=== PATIENT | female | born 1960 | race Caucasian/White ===

== ENCOUNTER → 2017-05-27 15:48 | Outpatient (CLI) | payer OTHER, SELFPAY ==
[2017-05-27 16:16] LABS: Troponin I < 0.02 ng/ml (0.00-0.06)
== END ==
PROVIDERS: PCP Internal Medicine; Visit Provider Internal Medicine
DX: R07.9 Chest pain, unspecified (principal); R14.2 Eructation
CPT/HCPCS: 36415; 84484; 93005

== ENCOUNTER → 2017-10-07 10:27 | Outpatient (CLI) | payer OTHER, SELFPAY ==
--- NOTE | 2017-10-07 10:32 | XR_ITS ---
XR hip LT 2-3V w/pelvis HISTORY: ITS.REASON: LT HIP PAIN ORDERING PHYSICIAN: Chan George PATIENT AGE: 56 years COMPARISON: None FINDINGS: Severe osteoarthritic changes are present involving the left hip with loss of the joint space superiorly and with osteosclerosis of the acetabular roof and the left femoral head with some minimal flattening of the femoral head. Cortical thickening involves the left femoral neck and may be due to remodeling from the severe osteoarthritis. An old fracture is also a consideration. No acute fracture or dislocation Prominent osteophytes are present involving the left hip. Moderate osteoarthritic changes involve the right hip. IMPRESSION: 1. Severe osteoarthritis of the left hip with dysplastic changes of the femoral head and neck. 2. Moderate osteoarthritis of the right hip.
== END ==
PROVIDERS: PCP Internal Medicine; Visit Provider Internal Medicine
DX: M25.552 Pain in left hip (principal)
CPT/HCPCS: 73502

== ENCOUNTER → 2018-05-18 09:22 | Outpatient (CLI) | payer OTHER, SELFPAY ==
--- NOTE | 2018-05-18 09:27 | XR_ITS ---
XR chest 2V HISTORY: History of breast cancer, prior right mastectomy ITS.REASON: FHX HEART DISEASE, PRE OP ORDERING PHYSICIAN: Chan George PATIENT AGE: 57 years COMPARISON: None FINDINGS: The cardiomediastinal silhouette and pulmonary vascularity are within normal limits. There are surgical clips in the right axilla. Prior right mastectomy. The lungs are clear without infiltrates, suspicious nodules, or pleural effusions. There is minimal upper thoracic curvature convex right. IMPRESSION: No acute finding. Prior right mastectomy
[2018-05-18 15:38] LABS: Basophils % 0.8 % (0.1-2.0); Eosinophils # 0.3 K/mm3 (0.0-0.4); Eosinophils % 6.2 % (0.1-12.0); Hematocrit 36.5 % (37.0-47.0); Hemoglobin 12.1 g/dL (12.2-16.2); Lymphocytes # 1.9 K/mm3 (0.7-4.5); Lymphocytes % 34.5 % (10-50); Mean Corpuscular HGB Conc 33.1 g/dL (31.8-35.4); Mean Corpuscular Hemoglobin 29.3 pg (27.0-31.2); Mean Corpuscular Volume 88.6 fl (81-99); Mean Platelet Volume 7.5 fl (7.4-10.4); Monocytes # 0.4 K/mm3 (0.1-1.0); Monocytes % 6.5 % (1.7-9.3); Neutrophils # 2.8 K/mm3 (1.8-7.8); Neutrophils % 52.1 % (37.0-80.0); Platelet Count 249 K/mm3 (142-424); Red Blood Count 4.12 M/mm3 (4.20-5.40); Red Cell Distribution Width 13.5 % (11.5-17.5); White Blood Count 5.4 K/mm3 (4.8-10.8)
[2018-05-18 16:51] LABS: Anion Gap 15.3 mEq/L (5-15); Blood Urea Nitrogen 15 mg/dL (7-18); Calcium 9.2 mg/dL (8.5-10.1); Carbon Dioxide 28 mmol/L (21.0-32.0); Chloride 104 mmol/L (98-107); Estimated Glomerular Filt Rate 74 ml/min (>60); GFR (African American) 90 ML/MIN (>60); Glucose 79 mg/dL (74-106); Potassium 4.3 mmoL/L (3.5-5.1); Sodium 143 mmol/L (136-145)
[2018-05-20 10:01] LABS: Vitamin D 25 Hydroxy 16.7 ng/mL (30.0-100.0)
== END ==
PROVIDERS: PCP Internal Medicine; Visit Provider Internal Medicine
DX: Z01.810 Encounter for preprocedural cardiovascular examination (principal); M25.552 Pain in left hip; E55.9 Vitamin D deficiency, unspecified
CPT/HCPCS: 36415; 71046; 80048; 82652; 85025; 93005

== ENCOUNTER → 2018-05-26 12:06 | Outpatient (CLI) | payer OTHER, SELFPAY ==
--- NOTE | 2018-05-26 12:20 | NM_ITS ---
CARDIOLITE SPECT MYOCARDIAL PERFUSION LEXISCAN, REST AND STRESS: [facility] REVIEW QGS EF AND WALL MOTION EVALUATION: QPS - PERFUSION EVALUATION HISTORY: Chest pain, Pre op, Family history DOSE: 10.23 mCi technetium 99m mibi intravenously at rest followed by 32.3 mCi technetium 99m mibi following the intravenous ministration of 0.4 mg of Lexiscan. Resting blood pressure is 180/108. Stress blood pressure 169/93. FINDINGS: Ejection fraction is calculated to be 62%. Stress images reveal decreased activity in the anterior wall while rest images reveal slightly improved activity. Gated images calculated ejection fraction of 62% with normal wall motion IMPRESSION: Reversible ischemia in the anterior wall. Normal ejection fraction normal wall motion. Based on anterior wall involvement
--- NOTE | 2018-05-26 14:15 | HMH.ITSHM ---
Current Home Medications as stated by this patient Marium Musa or customer sales representative. []OMEPRAZOLE VITAMIN D3 FLUTICASONE ADVIL
== END ==
PROVIDERS: PCP Internal Medicine; Visit Provider Internal Medicine
DX: Z01.818 Encounter for other preprocedural examination (principal); R07.9 Chest pain, unspecified
CPT/HCPCS: 78452; 93017; A9502; J2785

== ENCOUNTER → 2018-08-09 09:09 | Outpatient (CLI) | payer OTHER, SELFPAY ==
--- NOTE | 2018-08-09 09:20 | XR_ITS ---
XR hip LT 2-3V w/pelvis HISTORY: Follow-up hip replacement ITS.REASON: S/P LTHA ORDERING PHYSICIAN: Referral Provider, PATIENT AGE: 57 years COMPARISON: 10/07/2017 FINDINGS: Status post total left hip replacement on the left with good alignment and no evidence of orthopedic complication. Osteoarthritic changes involve the right hip. IMPRESSION: Good alignment status post total hip replacement
== END ==
PROVIDERS: PCP Internal Medicine; Visit Provider Orthopaedic Surgery
DX: Z47.1 Aftercare following joint replacement surgery (principal)
CPT/HCPCS: 73502

== ENCOUNTER → 2018-08-17 08:49 | Outpatient (POV) | payer OTHER, SELFPAY | PROVIDERS: PCP Dermatology; Referring Provider Dermatology; Visit Provider Dermatology | DX: Z00.00 Encounter for general adult medical examination without abnormal findings (principal) ==

== ENCOUNTER 2018-09-13 08:00 | Outpatient (RCR) | payer OTHER, SELFPAY | END 2018-09-13 08:05 | disposition home or self-care (01) | LOC: PT 08:00 | PROVIDERS: Visit Provider Orthopaedic Surgery | DX: Z47.1 Aftercare following joint replacement surgery (principal) | CPT/HCPCS: 97010; 97014; 97110; 97163; G0283 ==

== ENCOUNTER → 2019-10-18 08:09 | Outpatient (POV) | payer OTHER, SELFPAY | PROVIDERS: Visit Provider Dermatology | DX: Z00.00 Encounter for general adult medical examination without abnormal findings (principal) ==

== ENCOUNTER 2020-08-03 07:45 | Emergency (ER) | payer BC, SELFPAY ==
[2020-08-03] VITALS (7 sets, daily range): BP systolic 161–208; BP diastolic 87–105; PULSE 67–95; RESP 16–20; TEMP 36.5; O2SAT 96–99; BMI 27.8
--- NOTE | 2020-08-03 07:51 | HMH.EDGENADL ---
ED Disposition Clinical Impression: HTN (hypertension) Qualifiers: Hypertension type: essential hypertension Qualified Code(s): I10 - Essential (primary) hypertension Disposition: Home, Self-Care Condition on Discharge: Good Referrals: Chan George [Primary Care Provider] - 08/06/20 (Call for appointment time slot) Time of Disposition: 08:21 - Critical Care Critical Care Time: No Attestation: On , the high probability of a clinically significant, sudden or life threatening deterioration of the following system(s) required my full and direct attention, intervention and personal management. The time I documented below is in addition to time spent performing reported procedures but includes the following listed in this critical care notation. Medical Decision Making - Medical Records Medical records reviewed: Yes: I reviewed the patient's medical records. - Nikolay Inquiry Pt receiving controlled substance: No Vital Signs: 08/03/20 07:46 08/03/20 08:00 08/03/20 08:36 Temperature 97.7 F Temperature Source Oral Pulse Rate 86 Pulse Rate [Right] 95 H Respiratory Rate 18 20 Blood Pressure 184/104 H 183/99 H Blood Pressure [Right Arm] 208/105 H Blood Pressure Mean 130 Blood Pressure Mean [Right Arm] 139 02 Sat by Pulse Oximetry 99 98 Oxygen Delivery Method Room Air - Lab Data Lab results reviewed: Yes: I reviewed the patient's lab results. Lab Results 08/03/20 08:42: WBC 4.2 L, RBC 4.63, Hgb 13.6, Hct 40.7, MCV 87.9, MCH 29.3, MCHC 33.4, RDW 14.1, Plt Count 267, MPV 7.8, Neut % (Auto) 48.9, Lymph % (Auto) 33.2, [place] % (Auto) 7.9, Eos % (Auto) 8.8, Baso % (Auto) 1.3, Neut # (Auto) 2.0, Lymph # (Auto) 1.4, [place] # (Auto) 0.3, Eos # (Auto) 0.4, Baso # (Auto) 0.1 08/03/20 08:42: Sodium 142, Potassium 3.2 L, Chloride 100, Carbon Dioxide 30, Anion Gap 15.2 H, BUN 9, Creatinine 0.80, Estimated Creat Clear 90, Estimated GFR 74, Est GFR ( Amer) 89, Glucose 105 H, Calcium 9.3 Result diagrams: 08/03/20 08:42 08/03/20 08:42 Orders (Tests/Meds): ED MEDICATIONS Discontinued Medications Generic Name Dose Route Start Last Admin Trade Name Taj PRN Reason Stop Dose Admin Labetalol HCl 20 mg 08/03/20 08:22 08/03/20 08:36 Labetalol 5mg/Ml 20ml Mdv IV 08/03/20 08:23 20 mg ONCE ONE Administration - ECG Data Tracing #1 I reviewed this ECG and interpreted as documented below: Normal sinus rhythm, 86 bpm, no ST elevation or depression, no ectopy, normal intervals. ECG initial impression date: 08/03/20 ECG initial impression time: 08:10 Medical Decision Narrative: 59yo F evaluated for hypertension. Patient is in no acute distress on initial evaluation. Her physical exam is benign. EKG is benign as above. Will order basic laboratory studies along with chest x-ray. Troponin is not ordered as the patient is not experiencing chest pain, nor has she experienced chest pain. We will start the patient on antihypertensive medication at this time and she can follow-up with her PCP early next week. Patient's work-up is benign. Her blood pressure is improved. She is discharged home with a prescription for lisinopril. She is encouraged to follow-up with her PCP on Thursday or Thursday. General Adult HPI - General Stated complaint: high blood pressure Time Seen by Provider: 08/03/20 07:51 Mode of Arrival: Ambulatory - History of Present Illness HPI narrative: 59yo F without significant past medical history reports emergency department secondary to elevated blood pressure. Patient reports she has not felt well for several weeks and thought initially she had sinus issues. She was taking [id number] sinus medication with no improvement. She discontinued that on Thursday. She denies fever, chest pain, cough, change in appetite or diet. She reports mild nausea without any vomiting. She began checking her blood pressure concerned maybe that was the etiology of her symptoms. She
--- NOTE | 2020-08-03 08:10 | ECG_ITS ---
APPROVED REPORT Exam: Resting ECG HR:86 bpm ECG Measurements Heart Rate 86 AXES UT 112 P 27 QRSd 90 QRS -9 QT 398 T 34 QTc 476 Conclusion Normal sinus rhythm Normal ECG Electronically signed by : Dimas Lynn, 08/03/2020 15:57:55
--- NOTE | 2020-08-03 08:14 | XR_ITS ---
PROCEDURE: XR CHEST PORTABLE CLINICAL HISTORY: HTN urgency COMPARISON: CR CXR2V XR chest 2V from 05/18/2018 FINDINGS: The cardiomediastinal silhouette and pulmonary vascularity are within normal limits. The lungs are clear without infiltrates, suspicious nodules, or pleural effusions. Surgical clips are present in the right axilla. Minimal upper thoracic scoliosis convex right. IMPRESSION: No acute findings. Dictated by: Tom Ken MD 08/03/2020 08:50 Tom Ken MD in [place] 08/03/2020 08:50
[2020-08-03 09:04] LABS: Basophils # 0.1 K/mm3 (0-0.2); Basophils % 1.3 % (0.1-2.0); Eosinophils # 0.4 K/mm3 (0.0-0.4); Eosinophils % 8.8 % (0.1-12.0); Hematocrit 40.7 % (37.0-47.0); Hemoglobin 13.6 g/dL (12.2-16.2); Lymphocytes # 1.4 K/mm3 (0.7-4.5); Lymphocytes % 33.2 % (10-50); Mean Corpuscular HGB Conc 33.4 g/dL (31.8-35.4); Mean Corpuscular Hemoglobin 29.3 pg (27.0-31.2); Mean Corpuscular Volume 87.9 fl (81-99); Mean Platelet Volume 7.8 fl (7.4-10.4); Monocytes # 0.3 K/mm3 (0.1-1.0); Monocytes % 7.9 % (1.7-9.3); Neutrophils % 48.9 % (37.0-80.0); Platelet Count 267 K/mm3 (142-424); Red Blood Count 4.63 M/mm3 (4.20-5.40); Red Cell Distribution Width 14.1 % (11.5-17.5); White Blood Count 4.2 K/mm3 (4.8-10.8)
[2020-08-03 09:11] LABS: Chloride 100 mmol/L (98-107); Potassium 3.2 mmoL/L (3.5-5.1); Sodium 142 mmol/L (136-145)
[2020-08-03 09:14] LABS: Anion Gap 15.2 mEq/L (5-15); Blood Urea Nitrogen 9 mg/dl (7-17); Calcium 9.3 mg/dl (8.4-10.2); Carbon Dioxide 30 mmol/L (22.0-30.0); Creatinine Clearance Estimated 90 mL/min (50-200); Estimated Glomerular Filt Rate 74 ml/min (>60); GFR (African American) 89 ML/MIN (>60); Glucose 105 mg/dl (74-100)
== END 2020-08-03 09:45 | disposition home or self-care (01) ==
PROVIDERS: Emergency Provider Family Medicine; PCP Internal Medicine
DX: R03.0 Elevated blood-pressure reading, without diagnosis of hypertension (principal)
CPT/HCPCS: 71045; 80048; 85025; 93005; 96374; 99282

== ENCOUNTER → 2021-01-01 10:58 | Outpatient (POV) | payer BC, SELFPAY | PROVIDERS: Visit Provider Dermatology | DX: Z00.00 Encounter for general adult medical examination without abnormal findings (principal) ==

== ENCOUNTER → 2021-01-14 15:58 | Outpatient (CLI) | payer BC, SELFPAY ==
[2021-01-14 16:46] LABS: Coronavirus 19, PCR Not Detected (NotDetected); Influenza A, PCR Not Detected (NotDetected); Influenza B, PCR Not Detected (NotDetected)
== END ==
PROVIDERS: PCP Internal Medicine; Visit Provider Internal Medicine
DX: Z20.822 Contact with and (suspected) exposure to COVID-19 (principal)
CPT/HCPCS: C9803; U0003; U0005

== ENCOUNTER → 2022-02-26 10:19 | Outpatient (CLI) | payer BC, SELFPAY ==
--- NOTE | 2022-02-26 10:27 | CT_ITS ---
FINAL REPORT TECHNIQUE: Thin section axial images were obtained from skull base to vertex without contrast. Coronal reconstruction images were obtained from the axial data. Exam was performed using dose reduction technique. CLINICAL HISTORY: HEADACHE, DIZZY FINDINGS: There is no mass effect or midline shift. There is no hydrocephalus. There is no intracranial hemorrhage. The posterior fossa is without acute abnormality. The basilar cisterns are preserved. There is mucous retention cyst or polyp in the right maxillary sinus with mild bilateral mucoperiosteal thickening. No air-fluid level is identified. No acute osseous abnormality is identified. IMPRESSION: No acute intracranial abnormality. Sinus disease as detailed above. Reviewed, Interpreted and Dictated by Erinn Nur MD Transcribed by Maddie Barry Authenticated and [facility]
[2022-02-26 12:35] LABS: Basophils # 0.1 K/mm3 (0-0.2); Basophils % 1.1 % (0.1-2.0); Eosinophils # 0.2 K/mm3 (0.0-0.4); Eosinophils % 2.8 % (0.1-12.0); Hematocrit 41.6 % (37.0-47.0); Lymphocytes # 1.6 K/mm3 (0.7-4.5); Lymphocytes % 27.1 % (10-50); Mean Corpuscular HGB Conc 31.2 g/dL (31.8-35.4); Mean Corpuscular Volume 92.9 fl (81-99); Mean Platelet Volume 8.5 fl (7.4-10.4); Monocytes # 0.4 K/mm3 (0.1-1.0); Monocytes % 6.4 % (1.7-9.3); Neutrophils # 3.6 K/mm3 (1.8-7.8); Neutrophils % 62.5 % (37.0-80.0); Platelet Count 335 K/mm3 (142-424); Red Blood Count 4.48 M/mm3 (4.20-5.40); Red Cell Distribution Width 14.1 % (11.5-17.5); White Blood Count 5.8 K/mm3 (4.8-10.8)
[2022-02-26 13:18] LABS: Chloride 103 mmol/L (98-107)
[2022-02-26 13:19] LABS: Potassium 4.8 mmoL/L (3.5-5.1); Sodium 142 mmol/L (136-145)
[2022-02-26 13:22] LABS: Alanine Aminotransferase 15 U/L (12-78); Albumin Level 4.8 g/dl (3.5-5.0); Albumin/Globulin Ratio 1.6 (1.1-1.8); Alkaline Phosphatase 105 U/L (38-126); Anion Gap 13.8 mEq/L (5-15); Aspartate Amino Transferase 23 U/L (14-36); Bilirubin,Total 0.4 mg/dl (0.2-1.3); Blood Urea Nitrogen 15 mg/dl (7-17); Calcium 9.4 mg/dl (8.4-10.2); Carbon Dioxide 30 mmol/L (22.0-30.0); Cholesterol 156 mg/dl (140-200); Estimated Glomerular Filt Rate 73 ml/min (>60); GFR (African American) 89 ML/MIN (>60); Glucose 107 mg/dl (74-100); Total Protein,Serum 7.8 g/dl (6.3-8.2); Triglycerides 105 mg/dl (30-150); VLDL Cholesterol 21 mg/dL (0-40)
[2022-02-26 13:37] LABS: Direct LDL Cholesterol 64.24 mg/dL (100-129)
[2022-02-26 13:57] LABS: Thyroid Stimulating Hormone 1.87 uIU/mL (0.465-4.68)
[2022-02-26 14:50] LABS: Chol/HDL Ratio 2.7 (1-3.5); HDL Cholesterol 57 mg/dl (40-60)
== END ==
PROVIDERS: PCP Internal Medicine; Visit Provider Internal Medicine
DX: R51.9 Headache, unspecified (principal); R42 Dizziness and giddiness; I10 Essential (primary) hypertension
CPT/HCPCS: 70450; 80053; 80061; 84443; 85025

== ENCOUNTER 2023-05-05 11:39 | Outpatient (POV) | payer BC, SELFPAY | END 2023-05-05 23:59 | disposition home or self-care (01) | LOC: SC 11:39 | PROVIDERS: PCP Internal Medicine; Visit Provider Dermatology | DX: Z00.00 Encounter for general adult medical examination without abnormal findings (principal) ==

== ENCOUNTER 2023-05-26 11:51 | Outpatient (CLI) | payer BC, SELFPAY ==
--- NOTE | 2023-05-26 11:59 | XR_ITS ---
FINAL REPORT CLINICAL HISTORY: HIP PAIN; HISTORY OF HIP REPLACEMENT COMPARISON: None FINDINGS: AP and frog leg views of the right hip were obtained. There is no prior exam for comparison. There is no acute fracture or dislocation. There are is advanced degenerative narrowing of the right hip joint with subchondral sclerosis and osteophyte formation consistent with moderate advanced osteoarthritis.. Soft tissues are within normal limits. A left hip arthroplasty has been performed. IMPRESSION: Moderately advanced osteoarthritis of the right hip as described. Reviewed, Interpreted and Dictated by Obdulio Flores MD Transcribed by Siobhan Mayo Authenticated and [facility]
== END 2023-05-26 23:59 | disposition home or self-care (01) ==
LOC: RAD 11:52
PROVIDERS: PCP Internal Medicine; Visit Provider Internal Medicine
DX: M25.551 Pain in right hip (principal)
CPT/HCPCS: 73502

== ENCOUNTER 2023-08-20 09:53 | Outpatient (CLI) | payer BC, SELFPAY ==
[2023-08-20 15:07] LABS: Basophils # 0.1 K/mm3 (0-0.2); Basophils % 1.5 % (0.1-2.0); Eosinophils # 0.3 K/mm3 (0.0-0.4); Eosinophils % 8.4 % (0.1-12.0); Hematocrit 39.3 % (37.0-47.0); Hemoglobin 12.7 g/dL (12.2-16.2); Lymphocytes # 1.6 K/mm3 (0.7-4.5); Lymphocytes % 38.7 % (10-50); Mean Corpuscular HGB Conc 32.3 g/dL (31.8-35.4); Mean Corpuscular Hemoglobin 30.3 pg (27.0-31.2); Mean Corpuscular Volume 93.7 fl (81-99); Mean Platelet Volume 9.5 fl (7.4-10.4); Monocytes # 0.3 K/mm3 (0.1-1.0); Monocytes % 7.7 % (1.7-9.3); Neutrophils # 1.8 K/mm3 (1.8-7.8); Neutrophils % 43.7 % (37.0-80.0); Platelet Count 279 K/mm3 (142-424); Red Blood Count 4.19 M/mm3 (4.20-5.40); Red Cell Distribution Width 14.3 % (11.5-17.5)
[2023-08-20 15:33] LABS: Alanine Aminotransferase 13 U/L (12-78); Albumin Level 4.7 g/dl (3.5-5.0); Albumin/Globulin Ratio 1.6 (1.1-1.8); Alkaline Phosphatase 86 U/L (38-126); Aspartate Amino Transferase 22 U/L (14-36); Bilirubin,Total 0.9 mg/dl (0.2-1.3); Blood Urea Nitrogen 13 mg/dl (7-17); Calcium 9.5 mg/dl (8.4-10.2); Carbon Dioxide 31 mmol/L (22.0-30.0); Chloride 105 mmol/L (98-107); Chol/HDL Ratio 2.7 (1-3.5); Cholesterol 154 mg/dl (140-200); Estimated Glomerular Filt Rate 85 ml/min (>60); GFR (African American) 103 ML/MIN (>60); Globulin 2.9 g/dL (1.3-3.2); Glucose 80 mg/dl (74-100); HDL Cholesterol 57 mg/dl (40-60); Sodium 142 mmol/L (136-145); Total Protein,Serum 7.6 g/dl (6.3-8.2); Triglycerides 84 mg/dl (30-150); VLDL Cholesterol 17 mg/dL (0-40)
[2023-08-20 15:38] LABS: Hemoglobin A1C 5.4 % (4.0-6.0)
== END 2023-08-20 23:59 | disposition home or self-care (01) ==
LOC: LAB.DROPOF 09:54
PROVIDERS: PCP Internal Medicine; Visit Provider Internal Medicine
DX: Z01.818 Encounter for other preprocedural examination (principal); I10 Essential (primary) hypertension; E78.5 Hyperlipidemia, unspecified
CPT/HCPCS: 80053; 80061; 83036; 85025; 87081

== ENCOUNTER 2023-08-24 10:25 | Outpatient (CLI) | payer BC, SELFPAY ==
--- NOTE | 2023-08-24 10:25 | ECG_ITS ---
APPROVED REPORT Exam: Resting ECG HR:76 bpm ECG Measurements Heart Rate 76 AXES SD 155 P 30 QRSd 92 QRS 3 QT 401 T 15 QTc 431 Conclusion SINUS RHYTHM NORMAL ECG UNCONFIRMED REPORT Electronically signed by : Dimas Lynn MD 08/26/2023 07:12:28
[2023-08-24 16:56] LABS: Microscopic, Urine URINE MICROSCOPIC (MICROSCOPIC)
[2023-08-24 20:34] LABS: Appearance,Urine CLEAR (Clear); Bilirubin,Urine Negative (Negative); Blood, Urine TRACE-I (Negative); Color,Urine YELLOW (Yellow); Glucose,Urine (UA) Negative (Negative); Ketones,Urine Negative (Negative); Leukocyte Esterase,Urine 1+ (Negative); Nitrate,Urine Negative (Negative); PH,Urine 6.5 (5.0-8.5); Protein,Urine Negative (Negative); Specific Gravity, Urine <= 1.005 (1.005-1.030); Urobilinogen,Urine 0.2 EU/dl (0.2)
[2023-08-24 20:49] LABS: Bacteria,Urine 1+ /lpf; RBC,Urine Occasional #/hpf (0-3)
== END 2023-08-24 23:59 | disposition home or self-care (01) ==
LOC: RT 10:25
PROVIDERS: PCP Internal Medicine; Visit Provider Internal Medicine
DX: Z01.818 Encounter for other preprocedural examination (principal); I10 Essential (primary) hypertension
CPT/HCPCS: 81001; 87086; 93005

== ENCOUNTER 2023-09-02 09:54 | Outpatient (CLI) | payer BC, SELFPAY ==
[2023-09-02 14:12] LABS: Microscopic, Urine URINE MICROSCOPIC (MICROSCOPIC)
[2023-09-02 14:24] LABS: Appearance,Urine CLEAR (Clear); Bilirubin,Urine Negative (Negative); Blood, Urine TRACE-I (Negative); Color,Urine YELLOW (Yellow); Glucose,Urine (UA) Negative (Negative); Ketones,Urine Negative (Negative); Leukocyte Esterase,Urine 2+ (Negative); Nitrate,Urine Negative (Negative); Protein,Urine Negative (Negative); Specific Gravity, Urine 1.015 (1.005-1.030); Urobilinogen,Urine 0.2 EU/dl (0.2)
[2023-09-02 14:48] LABS: Bacteria,Urine Trace /lpf
== END 2023-09-02 23:59 | disposition home or self-care (01) ==
LOC: LAB.DROPOF 09-04 09:54
PROVIDERS: PCP Internal Medicine; Visit Provider Internal Medicine
DX: Z01.818 Encounter for other preprocedural examination (principal); M16.9 Osteoarthritis of hip, unspecified
CPT/HCPCS: 81001; 87086

== ENCOUNTER 2023-09-19 10:06 | Emergency (ER) | payer BC, SELFPAY ==
[2023-09-19 10:15] VITALS: BP 139/79; PULSE 86; RESP 19; TEMP 37.4; O2SAT 97; BMI 28.5
[2023-09-19 10:30] LABS: UTC Strep Screen (Rapid) Negative (Negative)
--- NOTE | 2023-09-19 10:45 | EXP.UTC ---
Discharge Plan Disposition Patient Disposition: Home, Self-Care Condition: Good Prescriptions Prescriptions: New amoxicillin 500 mg tablet 500 mg PO BID 10 Days Qty: 20 0RF No Action nifedipine 30 mg tablet extended release 30 mg PO DAILY Patient Comments: TAKE 1 TABLET BY MOUTH ONCE DAILY FOR BLOOD PRESSURE FOR 90 DAYS omeprazole 20 mg capsule,delayed release(DR/EC) 20 mg PO BID Referrals Follow up/Referrals: Chan George MD [Primary Care Provider] - See instructions Activity Restrictions/Add. Instructions Additional Instructions/Restrictions: Start antibiotics today be sure to take it as ordered with the full length of time although you should start feeling better in 24-48 hours. Change toothbrush and toothpaste 24-48 hours after starting antibiotics Tylenol or Motrin as needed for fever or pain Encourage fluids, water, Gatorade, Powerade, try cold fluids, popsicles, ice cream will make it feel better You are contagious for 24 hours. Avoid kissing anyone, no eating or drinking after anyone. You are contagious. Follow-up the ER for new or worsening symptoms or no noticeable improvement over the next 24-48 hours. Follow-up with PCP this week. Clinical Impressions Clinical Impression: Strep sore throat, Otitis media Instructions Patient Instructions: DI for Strep Throat, Middle Ear Infection Print Language Print Language: Azeri Discharge ED Provider: Beverly ([facility])Shelly [facility] [place] HPI General Stated complaint: swelling in throat, ear pain Mode of Arrival: Ambulatory Source of Information: Patient Limitations: No Limitations Time Seen by Provider: 09/19/23 10:45 Description of Symptoms (Recalled from Triage Doc. by RN): PATIENT C/O SORE THROAT AND RIGHT EAR PAIN SINCE YESTERDAY HEENT Symptoms (Recalled from RN notes): Yes Resp Symptoms (Recalled from RN notes): No Skin Symptoms (Recalled from RN notes): No MS Symptoms (Recalled from RN notes): No Functional Status (Recalled from RN notes): WNL History of Present Illness Provider Complaint: 62 yr old female presents for sore throat and rt ear pain Related Data Home Medications ?Medication ?Instructions ?Recorded ?Confirmed nifedipine 30 mg tablet,extended 30 mg PO DAILY 08/20/23 09/19/23 release omeprazole 20 mg capsule,delayed 20 mg PO BID 08/20/23 09/19/23 release Previous Rx's ?Medication ?Instructions ?Recorded amoxicillin 500 mg tablet 500 mg PO BID 10 days #20 tabs 09/19/23 Allergies Allergy/AdvReac Type Severity Reaction Status Date / Time bisoprolol Allergy Verified 09/19/23 10:24 hydrocodone Allergy Verified 08/20/23 08:44 lisinopril Allergy Diarrhea Verified 08/20/23 08:42 Worker's Comp Is this a Worker's Comp case?: No [facility] PFS Disclaimer: The information contained in this section may have been updated after the patient was seen, as this information can be updated by other users. Medical History , [employer]) History of gastroesophageal reflux (GERD) Breast cancer Hypertension Surgical History , [employer]) History of mastectomy History of hip surgery History of cholecystectomy History of hysterectomy Social History , [employer]) Smoking Status: Never smoker alcohol intake: never current occupational status: employed Travel in the last 8 weeks: Inside the [place] ROS Obtained: Yes All systems reviewed & no additional complaints except as documented Constitutional Constitutional: Reports system reviewed and no additional complaints, except as documented Eyes Eyes: Reports system reviewed and no additional complaints, except as documented ENT Ears, Nose, Mouth, and Throat: Reports system reviewed and no additional complaints, except as documented, Reports as per HPI, Reports otalgia and Reports sore throat Cardiovascular Cardiovascular: Reports system reviewed and no additional complaints, except as documented Respiratory Respiratory: Reports system reviewed and no additional complaints, except as documented Gastrointestinal Gastrointestingal: Reports system reviewed and no additional complaints, except as documented Musculoskeletal Musculoskeletal: Reports system reviewed and no additional complaints, except as documented Integumentary/Breasts Skin/Breast: Reports system reviewed and no additional complaints, except as documented Neurologic Neurologic: Reports system reviewed and no additional complaints, except as documented Endocrine Endocrine: Reports system reviewed and no additional complaints, except as documented Hematologic/Lymphatic Henatologic/Lymphatic: Reports system reviewed and no additional complaints, except as documented Allergic/Immunologic Allergic/Immunologic: Reports system reviewed and no additional complaints, except as documented Physical Exam General General appearance: alert and in no apparent distress Head Head exam: atraumatic Eye Eye exam: Present normal appearance ENT ENT exam: Present mucous membranes moist Expanded ENT Exam TM/Canal exam: Right TM: erythema, bulging and loss of landmarks Throat exam: Present tonsillar erythema, tonsillomegaly and tonsillar exudate Neck Neck exam: Present normal inspection Respiratory Respiratory exam: Present normal lung sounds bilaterally Cardiovascular Cardiovascular exam: Present regular rate and normal rhythm Neurological Exam Neurological exam: Present alert and oriented X3 Skin Skin exam: Present warm and intact Medical Decision Making Medical Records Medical records reviewed: Yes I reviewed the patient's medical records. Nikolay Inquiry Pt receiving controlled substance: No Nikolay was queried for this patient: No Vital Signs: 09/19/23 10:15 Temperature 99.4 F Temperature Source Oral Pulse Rate [Left Brachial] 86 Respiratory Rate 19 Blood Pressure [Left Arm] 139/79 Blood Pressure Mean [Left Arm] 99 Blood Pressure Source [Left Arm] Automatic Cuff Blood Pressure Position [Left Arm] Sitting 02 Sat by Pulse Oximetry 97 Oxygen Delivery Method Room Air Lab Data Lab results reviewed: Yes I reviewed the patient's lab results. Lab Results 09/19/23 10:16: Strep Scn Rapid Clinic Negative Orders (Tests/Meds): ORDERS Category Date Time Status Strep Screen Confirmation Stat Micro 09/19/23 10:16 Received
[2023-09-19 10:58] VITALS: BP 139/79; PULSE 86; RESP 19; TEMP 37.4; O2SAT 97
== END 2023-09-19 11:00 | disposition home or self-care (01) ==
PROVIDERS: Emergency Provider Nurse Practitioner Family; PCP Internal Medicine
DX: J02.0 Streptococcal pharyngitis (principal); H66.91 Otitis media, unspecified, right ear
CPT/HCPCS: 87880; 99204; 99212; 99214; G0463

== ENCOUNTER 2023-10-06 09:12 | Outpatient (CLI) | payer BC, SELFPAY ==
[2023-10-06 10:00] LABS: Basophils # 0.1 K/mm3 (0-0.2); Basophils % 0.9 % (0.1-2.0); Eosinophils # 0.3 K/mm3 (0.0-0.4); Eosinophils % 4.1 % (0.1-12.0); Hematocrit 38.9 % (37.0-47.0); Hemoglobin 12.4 g/dL (12.2-16.2); Lymphocytes # 2.4 K/mm3 (0.7-4.5); Lymphocytes % 34.9 % (10-50); Mean Corpuscular Hemoglobin 29.9 pg (27.0-31.2); Mean Corpuscular Volume 93.4 fl (81-99); Mean Platelet Volume 8.4 fl (7.4-10.4); Monocytes # 0.4 K/mm3 (0.1-1.0); Monocytes % 6.4 % (1.7-9.3); Neutrophils # 3.6 K/mm3 (1.8-7.8); Neutrophils % 53.6 % (37.0-80.0); Platelet Count 432 K/mm3 (142-424); Red Blood Count 4.17 M/mm3 (4.20-5.40); Red Cell Distribution Width 14.4 % (11.5-17.5); White Blood Count 6.7 K/mm3 (4.8-10.8)
[2023-10-06 10:36] LABS: Anion Gap 10.3 mEq/L (5-15); Blood Urea Nitrogen 15 mg/dl (7-17); Calcium 9.1 mg/dl (8.4-10.2); Carbon Dioxide 28 mmol/L (22.0-30.0); Chloride 106 mmol/L (98-107); Estimated Glomerular Filt Rate 85 ml/min (>60); GFR (African American) 103 ML/MIN (>60); Glucose 106 mg/dl (74-100); Potassium 4.3 mmoL/L (3.5-5.1); Sodium 140 mmol/L (136-145)
== END 2023-10-06 23:59 | disposition home or self-care (01) ==
PROVIDERS: PCP Internal Medicine; Visit Provider Internal Medicine
DX: Z01.818 Encounter for other preprocedural examination (principal)
CPT/HCPCS: 36415; 80048; 85025; 87081

== ENCOUNTER 2023-12-08 10:28 | Outpatient (CLI) | payer BC, SELFPAY ==
--- NOTE | 2023-12-08 10:34 | XR_ITS ---
PROCEDURE INFORMATION: Exam: XR Right Hip Exam date and time: 12/08/2023 10:53 AM Age: 63 years old Clinical indication: Injury or trauma; Fall; Other: Follow up for SX; Prior surgery; Surgery date: 1-6 months; Surgery type: 6 weeks - hip replacement; Additional info: HX of total RT hip arthroplasty TECHNIQUE: Imaging protocol: Radiologic exam of the right hip. Views: 2 or 3 views hip with pelvis when performed. COMPARISON: CR XR HIP RT 2-3V W/PELVIS 05/26/2023 12:19 PM FINDINGS: Bones/joints: Bilateral total hip replacements. There is no evidence of acute fracture.There is no evidence of malalignment or dislocation. Soft tissues: Unremarkable. Intraperitoneal space: Surgical clips in the pelvis IMPRESSION: There is no evidence of acute fracture.There is no evidence of malalignment or dislocation.
== END 2023-12-08 23:59 | disposition home or self-care (01) ==
LOC: RAD 10:29
PROVIDERS: PCP Internal Medicine; Visit Provider Orthopaedic Surgery
DX: Z96.641 Presence of right artificial hip joint (principal)
CPT/HCPCS: 73502

== ENCOUNTER 2024-05-17 16:06 | Outpatient (CLI) | payer BC, SELFPAY ==
--- OUTSIDE RECORDS SUMMARY | 2024-05-19 21:38 | XMS_ITS ---
Author Organization [facility] , [facility] Address [address] [place] [address] Phone Care Team Providers Care Copier Technician Name Role Phone Rashmi WEI, Chaitanya Steele Unavailable [phone] Problems Includes: Active, inactive, and resolved Problems All Visits Onset Date Resolved Date Provider Condition S tatus Complications Due To Internal Joint Prosthesis Pain Hip 06/25/2023 Checo Preciado MD Active Last Documented On 4 9:01AM ; [facility] Plan of Treatment No Plan of Treatment Recorded Assessments Includes: Assessments for all patient encounters No Assessments Recorded Medical Equipment - Implanted Devices Includes: Current and historical Devices No Medical Equipment Recorded Medications Includes: Current and historical Medications Current Medications (continue as prescribed) NIFEdipine ER 30 MG Oral Tab let Extended Release 24 Hour 05/27/2023 Provider: AALIYAH MARTINEZ MD Diagnosis: Last Documented On 4 9:01AM By Kay[facility] Fluticasone Propionate 50 MCG/ACT Nasal Suspension Provider: Diagnosis: Last Documented On 4 9:01AM By Kayley [facility], [facility] NIFEdipine ER 30 MG Oral Tab let Extended Release 24 Hour 02/23/2023 Provider: AALIYAH MARTINEZ MD Diagnosis: Last Documented On 4 9:01AM By Kayley [facility] Losartan Potassium 50 MG Oral Tablet 12/27/2022 Prov ider: AALIYAH MARTINEZ MD Diagnosis: Last Documented On 4 9:01AM By Kayley [facility] Medications Administered Includes: Administered Medications in patient's chart No Administered Medications Recorded Vital Signs Includes: Vital Signs from 05/20/2023 through 05/19/2024 Vital Name 06/25/2023 09:01A Height (in) 60 Weight (lb) 163 Body Mass Index 31.8 Body Surface Area 1.7 Note: tm Last Documented: On 06/25/2023 9:03AM ; [facility], [facility] Results Includes: Results from 05/20/2023 through 05/19/2024 No Results Recorded For Specified Dates History of Present Illness History of Present Illness not supported for this document type No History of Present Illness Recorded Social History Description Last Updated Caffeine use 06/25/2023 Last Documented On 4 8:09AM ; [facility], [facility] No recent change in diet 06/25/2023 Last Documented On 4 8:09AM ; [facility], [facility] Not a current smoker. 06/25/2023 Last Documented On 4 8:09AM ; [facility], [facility] Not exercising regularly 06/25/2023 Last Documented On 4 8:09AM ; [facility], [facility] Not using alcohol 06/25/2023 Last Documented On 4 8:09AM ; [facility], [facility] Not using drugs 06/25/2023 Last Documented On 4 8:09AM ; [facility], [facility] Never drank alcohol 06/25/2023 Last Documented On 4 8:09AM ; [facility], [facility] Never smoked 06/25/2023 Last Documented On 4 8:09AM ; [facility], [facility] Never used drugs 06/25/2023 Last Documented On 4 8:09AM ; [facility], [facility] Smoking Status Unknown Procedures and Surgical History Includes: Procedures from 05/20/2023 through 05/19/2024 Procedures Code Diagnosis Performing Provider Service Location Service Date PELVIS w/ 2-3 VIEW HIP (RIGHT) 32205 Unilateral primary osteoarthritis, right hip Checo Preciado MD [facility] 06/25/2023 Last Documented On 4 9:48AM ; [facility], [facility] Surgical History Last Updated History of History of Gallbladder 2023 Last Documented On 4 8:09AM ; [facility] History of hysterectomy 06/25/2023 Last Documented On 4 8:09AM ; [facility] Past Surgical History: Total joint repla cement ~masstectomy 06/25/2023 Last Documented On 4 8:09AM ; [facility], [facility] Medical History Includes: Medical History in patient's chart Description Last Updated History of arthritis 06/25/2023 Last Documented On 4 8:09AM ; [facility] History of Heartburn / Acid Reflux 06/24 Last Documented On 4 8:09AM ; [facility] History of History of Cancer 06/25/2023 Last Documented On 4 8:09AM ; [facility] History of Hypertension 06/25/2023 Last Documented On 4 8:09AM ; [facility] Family History Includes: Family History in patient's chart Description Last Updated Diabetes mellitus 06/25/2023 Last Documented On 4 8:09AM ; [facility] Family history of cancer 06/25/2023 Last Documented On 4 8:09AM ; [facility] Family history of heart disease 06/25/19 Last Documented On 4 8:09AM ; [facility] Family history of systemic hypertension 06/25/2023 Last Documented On 4 8:09AM ; [facility] Review of Systems Review of Systems not supported for this document type No Review of Systems Recorded Mental Status Description No anxiety Functional Status No Functional Status Recorded Physical Exam Physical Exam not supported for this document type No Physical Exam Recorded Allergies Includes: Active, inactive, and resolved Allergies No Known Allergies Encounters Includes: Encounters from 05/20/2023 through 05/19/2024 Encounter Provider Location Date Check-In Time Check-Out Time Diagnosis Non Physician Specified Checo Preciado MD [facility] 06/25/19 24 8:14AM 8:57AM Insurance Includes: Active Insurance Policies Plan Name Member ID Group # Subscriber Relationship Effect danette Dates 1 - [facility] [id number] Marium Musa Self 02/09/2023 - Un known Clinical Notes Includes: Signed Clinical Notes starting from 01/23/2022 * Progress note Date Encounter Last Documented by 06/25/2023 Non Physician Specified Last doc umented on 06/26/2023; 8:09 AM, Checo Preciado MD; [facility], [facility] Active Problems & Conditions - Complications Due To Internal Joint Prosthesis Pain Hip Chief Complaint The Chief Complaint is: Right hip pain. History of Present Illness Marium Musa is a 62 year old female. - Allergy list reviewed - Problem list reviewed - Medication list reviewed - Stabbing pain - Pain is occasional (25% of the time) Medications used for this condition: Presents for evaluation of right hip pain. This has been going on now for many months. It is located in the groin side of the hip does radiate down the leg. Described as achy and sharp. 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 Pain prevents her from sleeping at night. She is tried Tylenol anti-inflammatories. She is tried lower extremity strengthening as well as exercise at home. Activity modification. Status post left total hip arthroplasty 5 years ago in [place] and doing well on this side. Current Medication - Fluticasone Propionate 50 MCG/ACT Nasal Suspension 30 days, 0 refills - Losartan Potassium 50 MG Oral Tablet 90 days, 0 refills - NIFEdipine ER 30 MG Oral Tablet Extended Release 24 Hour 90 days, 0 refills - NIFEdipine ER 30 MG Oral Tablet Extended Release 24 Hour 90 days, 0 refills Past Medical/Surgical History Diagnoses: History of Cancer Heartburn / Acid Reflux Hypertension. Arthritis Surgical: - Past Surgical History: Total joint replacement masstectomy - Hysterectomy - History of Gallbladder Social History Not a current smoker. Current diet: No recent change in diet. Caffeine use: Caffeine use. Tobacco use: Never smoked. Alcohol: Not using alcohol. Never drank alcohol. Drug Use: Not using drugs. Never used drugs. Habits: Not exercising regularly. Allergies - No Known Allergies Family History Cancer Heart disease Diabetes mellitus Systemic hypertension Review Of Systems Systemic: Not feeling tired, no recent weight loss, and no recent weight gain. Head: No headache and no sinus pain. Eyes: No vision problems, no Cataracts, no Glasses/Contacts, and no Glaucoma. Otolaryngeal: No hearing loss and no tinnitus. Cardiovascular: No chest pain or discomfort, no palpitations, no Hypertension, and no High Cholesterol. Pulmonary: No daytime asthma symptoms and no chronic cough. No wheezing. Gastrointestinal: Heartburn. No abdominal pain. No Indigestion, no Peptic Ulcer, no GI Stomach Bleed, and no Ulcers. Acid Reflux. Endocrine: Hot flashes. No muscle weakness, no Diabetes, no Hypothyroid, and no Hyperthyroid. Hematologic: No easy bleeding, no tendency for easy bruising, and no Anemia. Musculoskeletal: No Arthritis and no lower back pain. No soft tissue swelling and no localized joint pain. Neurological: No dizziness, no convulsions, and no numbness. Psychological: No anxiety, no emotional lability, no depression, and no insomnia. Not crying for no reason. Skin: No dry skin. No Ulcers, no Scars, and no rash. Allergic and Immunologic: Complaint of seasonal allergic reaction. Physical Findings - Vitals taken 06/25/2023 09:01 am tm Height 60 in Weight 163 lbs Body Mass Index 31.8 kg/m2 Body Surface Area 1.7 m2 General: The patient is alert and oriented in no distress. Respiratory: Nonlabored breathing in the exam room Cardiac: Extremities are warm and well-perfused. Skin: Skin appears clean dry and intact. Musculoskeletal exam: Patient walks with an antalgic gait Exam of the BILATERAL KNEES shows painless range of motion from 0-120 degrees. No tenderness to palpation along the medial/lateral joint lines. Exam of the R hip demonstrates recreation of her severe right hip and groin pain with hip flexion internal rotation. Her hip is very stiff with hip flexion to 105- with obligate external rotation. External rotation 30-. Negative straight leg raise. Nontender to palpation over the greater trochanter. . Skin CDI over the lateral hip. Neurovascular exam of the bilateral lower extremities demonstrates strength to be 5/5 in hip flexion, knee flexion and extension, ankle dorsiflexion/plantarflexion, and great toe dorsiflexion/plantarflexion. Pulses are palpable in DP. AP pelvis two-view obtained personally reviewed today of the right hip demonstrates severe xgho-ri-jkay arthritis with complete loss of superior joint space. Lateralization of the femoral head and surrounding osteophytes. Previous Tests Imaging: Intravascular Ultrasound (Coronary Vessel/Graft): An X-ray was performed. Notes This dictation was done with voice recognition software and may contain errors and omissions. User Defined 5 Severe right hip osteoarthritis We discussed the treatment for hip arthritis in detail with the patient today. We recommended eops-fvd-[id number] pain medication such as Tylenol or NSAIDS if approved by their PCP. We also discussed the benefits of weight loss, exercise, and lower extremity strengthening via physical therapy. Activity modification and ambulatory aids were also discussed. They have clearly failed conservative treatment and so therefore we discussed a total hip arthroplasty. We discussed the indications, risks, benefits, alternatives, and recovery associated with a total hip replacement today in detail. Specific risks discussed include but are not limited to: Bleeding, infection, pain, scarring, nerve and/or blood vessel injury, tendon/ligament damage, fracture, dislocation, reaction to or failure of prosthetic implants, limb length discrepancy, blood clots, as well as the medical and anesthetic risks of surgery. The patient acknowledged these risks and would like to proceed with a right total hip arthroplasty
--- OUTSIDE RECORDS SUMMARY | 2024-05-19 21:38 | XMS_ITS ---
Care Plan - [facility], [facility] Created on: May 19, 2024 Marium Musa : 1960 Sex: Female Author Organization [facility] , [facility] Address [address] [place] [address] Phone Care Team Providers Care Pet Ambassador Name Role Phone Rashmi WEI, Chaitanya Steele Unavailable [phone]
--- OUTSIDE RECORDS SUMMARY | 2024-05-19 21:39 | XMS_ITS | Clinical Summary ---
Author Organization [facility] , [facility] Address [address] [place] [address] Phone Care Team Providers Care Photographer Motion Picture Name Role Phone Rashmi WEI, Chaitanya Steele Unavailable [phone] Reason for Visit and Chief Complaint The Chief Complaint is: Right hip pain Problems Includes: Problems addressed during this encounter and other active Problems Current Visit Onset Date Resolved Date Provider Ynes n Status Complications Due To Internal Joint Prosthesis Pain Hip 06/25/2023 Checo Preciado MD Active Last Documented On 9:01AM ; [facility], [facility] Plan of Treatment No Plan of Treatment Recorded Assessments Includes: Assessments from this encounter Findings Severe right hip osteoarthritis - Last Documented On 06/26/2023 8:09AM ; [facility], [facility] We discussed the treatment for hip arthritis in detail with the patient today. We recommended poxb-uzh-[id number] pain medication such as Tylenol or NSAIDS if approved by their PCP. We also discussed the benefits of weight loss, exercise, and lower extremity strengthening via physical therapy. Activity modification and ambulatory aids were also discussed. They have clearly failed conservative treatment and so therefore we discussed a total hip arthroplasty. - Last Documented On 06/26/2023 8:09AM ; [facility], [facility] We discussed the indications, risks, benefits, alternatives, and recovery associated with a total hip replacement today in detail. Specific risks discussed include but are not limited to: Bleeding, infection, pain, scarring, nerve and/or blood vessel injury, tendon/ligament damage, fracture, dislocation, reaction to or failure of prosthetic implants, limb length discrepancy, blood clots, as well as the medical and anesthetic risks of surgery. - Last Documented On 06/26/2023 8:09AM ; [facility], [facility] The patient acknowledged these risks and would like to proceed with a right total hip arthroplasty - Last Documented On 06/26/2023 8:09AM ; [facility] Medical Equipment - Implanted Devices Includes: Current Devices No Medical Equipment Recorded Medications Includes: Medications discussed during this encounter and other current Medications Current Medications (continue as prescribed) NIFEdipine ER 30 MG Oral Tab let Extended Release 24 Hour 05/27/2023 Provider: AALIYAH MARTINEZ MD Diagnosis: Last Documented On 4 9:01AM By Kayley Joseph ; [facility] Fluticasone Propionate 50 MCG/ACT Nasal Suspension Provider: Diagnosis: Last Documented On 4 9:01AM By Kayley [facility] NIFEdipine ER 30 MG Oral Tab let Extended Release 24 Hour 02/23/2023 Provider: AALIYAH MARTINEZ MD Diagnosis: Last Documented On 4 9:01AM By Kayley [facility] Losartan Potassium 50 MG Oral Tablet 12/27/2022 Prov ider: AALIYAH MARTINEZ MD Diagnosis: Last Documented On 4 9:01AM By Kayley Joseph ; [facility] Medications Administered Includes: Administered Medications from this encounter No Administered Medications Recorded Vital Signs Includes: Vital Signs from this encounter Vital Name 06/25/2023 09:01A Height (in) 60 Weight (lb) 163 Body Mass Index 31.8 Body Surface Area 1.7 Note: tm Last Documented: On 06/25/2023 9:03AM ; [facility] Results Includes: Results discussed during this encounter No Results Recorded For Specified Dates History of Present Illness Includes: History of Present Illness from this encounter DICKSON Musa is a 62 year old female. [...] achy and sharp. 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 Pain prevents her from sleeping at night. She is tried Tylenol anti-inflammatories. She is tried lower extremity strengthening as well as exercise at home. Activity modification. Status post left total hip arthroplasty 5 years ago in [place] and doing well on this side. Social History Description Last Updated Caffeine use 06/25/2023 Last Documented On 4 8:09AM ; [facility], [facility] No recent change in diet 06/25/2023 Last Documented On 4 8:09AM ; [facility], [facility] Not a current smoker. 06/25/2023 Last Documented On 4 8:09AM ; [facility] Not exercising regularly 06/25/2023 Last Documented On 4 8:09AM ; [facility] Not using alcohol 06/25/2023 Last Documented On 4 8:09AM ; [facility] Not using drugs 06/25/2023 Last Documented On 4 8:09AM ; [facility], [facility] Never drank alcohol 06/25/2023 Last Documented On 4 8:09AM ; [facility] Never smoked 06/25/2023 Last Documented On 4 8:09AM ; [facility] Never used drugs 06/25/2023 Last Documented On 4 8:09AM ; [facility] Smoking Status Unknown Procedures and Surgical History Includes: Procedures from this encounter Procedures Code Diagnosis Performing Provider Service Location Service Date PELVIS w/ 2-3 VIEW HIP (RIGHT) 75921 Unilateral primary osteoarthritis, right hip Checo Preciado MD [facility] 06/25/2023 Last Documented On 4 9:48AM ; [facility] an X-ray was performed 23404 Last Documented On 4 9:04AM ; [facility], [facility] Surgical History Last Updated History of History of Gallbladder 2023 Last Documented On 4 8:09AM ; [facility] History of hysterectomy 06/25/2023 Last Documented On 4 8:09AM ; [facility] Past Surgical History: Total joint repla cement ~masstectomy 06/25/2023 Last Documented On 4 8:09AM ; [facility] Medical History Includes: Medical History addressed during this encounter Description Last Updated History of arthritis 06/25/2023 Last Documented On 4 8:09AM ; [facility], [facility] History of Heartburn / Acid Reflux 06/24 Last Documented On 4 8:09AM ; [facility], [facility] History of History of Cancer 06/25/2023 Last Documented On 4 8:09AM ; [facility], [facility] History of Hypertension 06/25/2023 Last Documented On 4 8:09AM ; [facility], [facility] Family History Includes: Family History addressed during this encounter Description Last Updated Diabetes mellitus 06/25/2023 Last Documented On 4 8:09AM ; [facility], [facility] Family history of cancer 06/25/2023 Last Documented On 4 8:09AM ; [facility], [facility] Family history of heart disease 06/25/19 Last Documented On 4 8:09AM ; [facility], [facility] Family history of systemic hypertension 06/25/2023 Last Documented On 4 8:09AM ; [facility], [facility] Review of Systems Includes: Review of Systems from this encounter Systemic: Not feeling tired, no recent weight [...] and Immunologic: Complaint of seasonal allergic reaction. Mental Status Includes: Mental Status from this encounter Description No anxiety Functional Status Includes: Functional Status from this encounter No Functional Status Recorded Physical Exam Includes: Physical Exam from this encounter Allergies Includes: Active Allergies No Known Allergies Encounters Encounter Provider Location Date Check-In Time Check-Out Time Diagnosis Non Physician Specified Checo Preciado MD [facility] 06/25/19 24 8:14AM 8:57AM Insurance Includes: Active Insurance Policies Plan Name Member ID Group # Subscriber Relationship Effect danette Dates 1 - [facility] [place] [id number] Marium Musa Self 02/09/2023 - Un known Clinical Notes Includes: Clinical Notes from this encounter * Progress note Date Encounter Last Documented by 06/25/2023 Non Physician Specified Last doc umented on 06/26/2023; 8:09 AM, Checo Preciado MD; [facility], [facility] Active Problems & Conditions - Complications [...] achy and sharp. 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 Pain prevents her from sleeping at night. She is tried Tylenol anti-inflammatories. She is tried lower extremity strengthening as well as exercise at home. Activity modification. Status post left total hip arthroplasty 5 years ago in [place] and doing well on this side. Current [...] today of the right hip demonstrates severe vgfh-[id number]-iwmk arthritis with complete loss of superior joint [...] detail with the patient today. We recommended biff-sqd-exizpxc pain medication such as Tylenol or NSAIDS [...]
== END 2024-05-17 23:59 | disposition home or self-care (01) ==
LOC: LAB.DROPOF 16:06
PROVIDERS: PCP Nurse Practitioner Family; Visit Provider Nurse Practitioner Family
DX: N39.0 Urinary tract infection, site not specified (principal)
CPT/HCPCS: 87086

== ENCOUNTER 2024-07-11 15:02 | Outpatient (CLI) | payer BC, SELFPAY ==
--- NOTE | 2024-07-11 15:11 | XR_ITS ---
FINAL REPORT CLINICAL HISTORY: Cough, fever COMPARISON: 08/03/2020 FINDINGS: PA and lateral views of the chest were obtained. The heart is mildly enlarged. There is new somewhat rounded opacity in the right upper lobe which could be infectious or inflammatory but mass is not excluded.. The left lung is clear. There is no pleural effusion or pneumothorax. No acute osseous abnormality is identified. IMPRESSION: New opacity right upper lobe. Recommend CT chest with contrast for further evaluation. Reviewed, Interpreted and Dictated by Erinn Nur MD Transcribed by Jyothi Carter Authenticated and [facility]
== END 2024-07-11 23:59 | disposition home or self-care (01) ==
LOC: RAD 15:03
PROVIDERS: PCP Internal Medicine; Visit Provider Internal Medicine
DX: R91.8 Other nonspecific abnormal finding of lung field (principal); R05.9 Cough, unspecified; R50.9 Fever, unspecified; R09.89 Other specified symptoms and signs involving the circulatory and respiratory systems
CPT/HCPCS: 71046

== ENCOUNTER 2024-08-18 08:44 | Outpatient (CLI) | payer BC, SELFPAY ==
--- NOTE | 2024-08-18 08:46 | XR_ITS ---
FINAL REPORT TECHNIQUE: Chest PA & Lateral CLINICAL HISTORY: Follow-up on right upper lobe pneumonia COMPARISON: 07/11/2024 FINDINGS: 2 views of the chest were performed. The heart size is normal. The mediastinum is within normal limits. The previously noted airspace infiltrate in the right upper lobe and perihilar region is no longer seen. The left lung is clear. There are no pleural effusions. There is no pneumothorax. The bony thorax appears intact. Surgical clips are present in the right axilla. IMPRESSION: Interval resolution of previously noted pneumonia. Reviewed, Interpreted and Dictated by Obdulio Flores MD Transcribed by Jyothi Carter Authenticated and [facility]
--- OUTSIDE RECORDS SUMMARY | 2024-08-18 08:47 | XMS_ITS | Continuity of Care Document ---
Author Organization [facility], [facility] Address [address] [place] [address] Care Team Providers Care Solid Waste Manager Name Role Phone AALIYAH MARTINEZ Primary Care Provider [phone] PRATIMA BERNSTEIN Referring Provider [phone] Assessment Encounter Date Assessment Date Assessment LastModified by Organization Details LastModified Time 07/01/2024 07/01/2024 63-year-old female with a history of urinary incontinence presenting with urinary leakage. Cystoscopy and urodynamic testing required. Mesh placement surgery planned. Post-surgery guidelines to avoid heavy lifting. 63-year-old female with a history of hysterectomy and hip replacement, presenting with vaginal prolapse. Prolapse symptoms have escalated and stress incontinence is noted. Pessary unsuitable per prior consult. Surgical intervention is considered due to failure of conservative measures. Vaginal Prolapse: Plan: Consider surgical intervention. Obtain consent after discussion. Stress Urinary Incontinence: Plan: Candidacy for sling procedure. Obtain consent. History Of Bilateral Hip Replacement: Plan: Monitor post-surgical recovery impacts. History Of Hysterectomy: Plan: Historical note. No further action. Urinary Incontinence: Perform cystoscopy and urodynamic testing. Plan mesh placement surgery. Provide postoperative care with lifting restrictions. [email or web address] Not available 07/01/2024 10:34:43 Plan of Treatment Reminders Order Date Submit Date Provider Last Modified By Organization Details Last Modified Time Details Appointments URODYNAMI CS 2024 10:30A M Cua_urody namics Not available Not available Not available [facility]i s [facility], [email or web address], [address], [address], [place], [address], 07/04/2024 09:00:56 Referral None recorded. Procedures urodynami c testing, complex (PROC) [address] [facility], [address], [address], [place], [address], 07/05/2024 13:01:42 cystoscop y (PROC) [address] [facility], [address], [address], [place], [address], 07/29/2024 15:45:09 Surgeries None recorded. Imaging None recorded. Medication Orders None recorded. Patient TargetsNo targets recorded. Patient Instructions Encounter Date Encounter Id Patient Instructions Last Modified By Organization Details Last Modified Time 07/01/2024 [id number] - Prepare for scheduled tests: cystoscopy and urodynamic study. - Follow lifting restrictions after surgery; avoid heavy lifting. - Stay overnight in the hospital after surgery for monitoring. - Discuss the procedure risks and benefits with family. - Contact office with any questions or issues concerning the scheduled procedures. - Consider surgical options for prolapse based on physician recommendations. - Discuss further management of stress urinary incontinence if pursuing surgery. - Follow up on any changes in symptoms or new concerns. - Attend scheduled visits for assessments or proposed interventions. [email or web address] Not available 07/01/2024 10:34:45 Reason for Referral None Reported. Results Created Date Observation Date Name Description Value Unit Range Abnormal Flag Note LastModifiedBy Organization Detail LastModifiedTime 07/02/1907/01/2024 urina lysis panel , auto Unknown Analyte Clean Catch Not Available [facility] [address], [place], [address], 07/01/2024 11:54:12 07/02/19 25 07/01/2024 urina lysis panel , auto Unknown Analyte Yellow Not Available [facility] [address], [place], [address], 07/01/2024 11:54:12 07/02/19 25 07/01/2024 urina lysis panel , auto Unknown Analyte Clear Not Available [facility] [address], [place], [address], 07/01/2024 11:54:12 07/02/19 25 07/01/2024 urina lysis panel , auto Unknown Analyte 1.005 Not Available [facility] [address], [place], [address], 07/01/2024 11:54:12 07/02/19 25 07/01/2024 urina lysis panel , auto Unknown Analyte 1.003 - 1.030 Not Available [facility] [address], [place], [address], 07/01/2024 11:54:12 07/02/19 25 07/01/2024 urina lysis panel , auto Unknown Analyte 7.0 Not Available [facility] [address], [place], [address], 07/01/2024 11:54:12 07/02/19 25 07/01/2024 urina lysis panel , auto Unknown Analyte 5.0 - 8.0 Not Available [facility] [address], [place], [address], 07/01/2024 11:54:12 07/02/19 25 07/01/2024 urina lysis panel , auto Unknown Analyte Negati ve Not Available [facility] [address], [place], [address], 07/01/2024 11:54:12 07/02/19 25 07/01/2024 urina lysis panel , auto Unknown Analyte Negati ve Not Available [facility] [address], [place], [address], 07/01/2024 11:54:12 07/02/19 25 07/01/2024 urina lysis panel , auto Unknown Analyte Negati ve Not Available [facility] [address], [place], [address], 07/01/2024 11:54:12 07/02/19 25 07/01/2024 urina lysis panel , auto Unknown Analyte Negati ve Not Available [facility] [address], [place], [address], 07/01/2024 11:54:12 07/02/19 25 07/01/2024 urina lysis panel , auto Unknown Analyte Negati ve Not Available [facility] [address], [place], [address], 07/01/2024 11:54:12 07/02/19 25 07/01/2024 urina lysis panel , auto Unknown Analyte Negati ve Not Available [facility] [address], [place], [address], 07/01/2024 11:54:12 07/02/19 25 07/01/2024 urina lysis panel , auto Unknown Analyte Normal Not Available [facility] [address], [place], [address], 07/01/2024 11:54:12 07/02/19 25 07/01/2024 urina lysis panel , auto Unknown Analyte Normal Not Available [facility] [address], [place], [address], 07/01/2024 11:54:12 07/02/19 25 07/01/2024 urina lysis panel , auto Unknown Analyte Negati ve Not Available [facility] [address], [place], [address], 07/01/2024 11:54:12 07/02/19 25 07/01/2024 urina lysis panel , auto Unknown Analyte Negati ve Not Available [facility] [address], [place], [address], 07/01/2024 11:54:12 07/02/19 25 07/01/2024 urina lysis panel , auto Unknown Analyte Normal Not Available [facility] [address], [place], [address], 07/01/2024 11:54:12 07/02/19 25 07/01/2024 urina lysis panel , auto Unknown Analyte Normal Not Available [facility] [address], [place], [address], 07/01/2024 11:54:12 07/02/19 25 07/01/2024 urina lysis panel , auto Unknown Analyte Negati ve Not Available [facility] [address], [place], [address], 07/01/2024 11:54:12 07/02/19 25 07/01/2024 urina lysis panel , auto Unknown Analyte Negati ve Not Available [facility] [address], [place], [address], 07/01/2024 11:54:12 07/02/19 25 07/01/2024 urina lysis panel , auto Unknown Analyte Negati ve Not Available [facility] [address], [place], [address], 07/01/2024 11:54:12 07/02/19 25 07/01/2024 urina lysis panel , auto Unknown Analyte Negati ve Not Available [facility] [address], [place], [address], 07/01/2024 11:54:12 Result Notes None recorded. Problems No Known Problems Procedures Surgical History Date Name Laterality Status Provider Name and Address Organization Details Recorded Time 07/02/19 25 Post Void Residual; Ultrasound completed Theresa [facility] 07/01/2024 10:25:18 cholecystectomy completed [facility] 07/01/2024 10:10:34 hysterectomy completed [facility] 07/01/2024 10:10:49 Bilateral mastectomy completed [facility] 07/01/2024 10:11:18 Imaging Results None recorded. Procedure Notes None recorded. Medical Equipment None Reported. Allergies Allergen ID Allergen Name Allergen Category Reaction Reaction Severity Criticality Documentation Date Start Date Code Code System Note Provider Name and Address Organization Details Recorded Time 766686 hydrocodo ne Not available chest pain Not available Not available 07/01/2024 5489 [facility] 629571 lisinopri l medicatio n diarrhea Not available Not available 07/01/2024 16809 RxNorm Theresa Lai [facility] 10:07:43 527297 bisoprolo l Not available nausea Not available Not available 07/01/2024 64906 RxNorm Theresa Lai [facility] 10:08:03 Medications Name Sig Start Date Stop Date Status Note LastModified by Organization Details LastModified Time vitamin E active Not Available Not Lydia ilable Not Available Vitamin D active Not Available Not Lydia ilable Not Available losartan active Not Available Not Avai lable Not Available Prilosec active Not Available Not Avai lable Not Available Vitamin B12 active Not Available Not A vailable Not Available Vitals Date Recorded Body height Body mass index (BMI) Body weight Provider Name and Address Organization Details Last Updated DateTime 07/01/2024 160.02 cm 28.9 kg/m2 19326.56 g Theresa Lai [facility] 07/01/2024 10:06:50 Social History Question Answer Notes LastModified by Organizat ion Details LastModified Time Tobacco Smoking Status Never Smoker Not Available [employer] 07/01/2024 09:59:52 What Was The Date Of Your Most Recent Tobacco Screening? 07/01/2024 [email or web address] Information not available 07/01/2024 What Is Your Relationship Status? [email or web address] Information not available 07/01/2024 Sex: Unknown Functional Status Question Answer Note LastModified by Organizat ion Details LastModified Time Do you or have you ever used any other forms of tobacco or nicotine? No [email or web address] Information not available 07/01/2024 What is your level of alcohol consumption? None [email or web address] Information not available 07/01/2024 Are you currently employed? 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 Family History Relationship Description Onset Age of this Age Resolved Age Notes LastModified by Organization Details LastModified Time Unspecified Relation Family history of malignant neoplasm [email or web address] Not available 2024 09:59:52 Medical History Condition Response Arthritis Y Acid Reflux (GERD) Y Cancer Y Urinary Tract Infection Y Chemotherapy Y If you get up at night to urinate, how m any times? Y Hypertension Y Seasonal Allergies Y Do you get up at night to urinate? Y Gynecological History Statement/Question Response Female Hormone Problem N # of Pregnancies 3 Abnormal Periods N # of Births 2 Could you be now? N Current Control Method Hysterectom y Uterus/Ovaries Problem N Obstetrics History GPAL:G 0 P 0 0 0 0 Past Encounters Encounter ID Performer Location Encounter Start Date Encounter Closed Date Diagnosis/Indication Diagnosis SNOMED-CT Code Diagnosis ICD10 Code Diagnosis Note [id number] STANISLAV RIVERA JR, MD [facility] [address] [place] [address] 07/01/2024 09:59:51 07/01/2024 10:34:56 Vaginal wall prolapse 281576392 N81.10 Incontinence 48860710 N3 9.46 Health Concerns Section Related Observation LastModified by Organization Detai ls LastModified Time None Recorded Concern Status LastModified by Organization Details LastModified Time None Recorded Payers Encounter Date Sequence Insurance Name Policy Number Policy Diaz Covered Member ID Diaz Member ID Guarantor Name 07/01/2024 1 [employer] Marium Musa [id number] Musa Notes Date Note Type Note Provider Name and Address Organization Details Recorded Time 07/01/2024 text/html The patient is a 63-year-old female presenting with urinary incontinence. Leakage requires further diagnostic evaluation. Testing includes cystoscopy and urodynamic studies to assess bladder function. Outpatient surgical repair with mesh is planned, requiring a brief hospital stay. Postoperative lifting restrictions will apply. The patient is a 63-year-old female presenting with vaginal prolapse. The vaginal prolapse symptoms began in 2018, with increased severity recently, and coincide with prior bilateral hip replacement. Previous consultation with Dr. Bernstein addressed the option of using a pessary, but this was deemed unsuitable due to potential dislodgement. The patient has a historical hysterectomy, performed in 2000 following initiation of chemotherapy for breast cancer. She reports stress urinary incontinence, noting occasional leakage with activities involving physical strain, but denies urgency-related issues. The patient has developed personal urination adjustments. STANISLAV RIVERA JR, MD [facility] [place], [address], [facility] 07/04/2024 09:00:59 OBGyn Episode No OBEpisode recorded.
--- OUTSIDE RECORDS SUMMARY | 2024-08-18 08:48 | XMS_ITS | Data Portability ---
Author Organization [facility] CHRIS Hutchinson [place] Address [address] [place] [address] Care Team Providers Care Rater Associate Name Role Phone AALIYAH MARTINEZ Primary Care Provider PRATIMA BERNSTEIN Referring Provider [phone] Assessment Encounter Date Assessment Date Assessment LastModified [...] Lab urinalysi s panel, auto 2024 [email or web address], [address], [address], [place], [address], 07/04/2024 09:00:56 Referral None recorded. Procedures urodynami c testing, complex (PROC) 2024 025 jon randall [facility], [address], [address], [place], [address], 07/05/2024 13:01:42 cystoscop y (PROC) [address] [facility], [address] [facility], [address], [place], [address], 07/29/2024 15:45:09 Surgeries None recorded. Imaging None recorded. Medication Orders None recorded. Patient TargetsNo targets recorded. Patient Instructions Encounter Date Encounter Id Patient Instructions Last Modified By Organization Details Last Modified Time 07/01/2024 [id number] - Prepare for scheduled tests: cystoscopy and [...] auto Unknown Analyte Clean Catch Not Available [facility] [address], [place], [address], 07/01/2024 11:54:12 07/02/1903 0707/01/2024 urina lysis panel , auto Unknown Analyte Yellow Not Available [facility] [address], [place], [address], 07/01/2024 11:54:12 07/02/19 25 07/01/2024 urina lysis panel , auto Unknown Analyte Clear Not Available [facility] [address], [place], [address], 07/01/2024 11:54:12 07/02/19 25 07/01/2024 urina lysis panel , auto Unknown Analyte 1.005 Not Available [facility] [address], [place], [address], 07/01/2024 11:54:12 07/02/19 25 07/01/2024 urina lysis panel , auto Unknown Analyte 1.003 - 1.030 Not Available [facility] [address], [place], [address], 07/01/2024 11:54:12 07/02/19 25 07/01/2024 urina lysis panel , auto Unknown Analyte 7.0 Not Available [facility] [address], [place], [address], 07/01/2024 11:54:12 07/02/19 25 07/01/2024 urina lysis panel , auto Unknown Analyte 5.0 - 8.0 Not Available [facility] [address], [place], [address], 07/01/2024 11:54:12 07/02/19 25 07/01/2024 urina lysis panel , auto Unknown Analyte Negati ve Not Available [facility] [address], [place], [address], 07/01/2024 11:54:12 07/02/19 25 07/01/2024 urina lysis panel , auto Unknown Analyte Negati ve Not Available [facility] [address], [place], [address], 07/01/2024 11:54:12 07/02/19 25 07/01/2024 urina lysis panel , auto Unknown Analyte Negati ve Not Available [facility] [address], [place], [address], 07/01/2024 11:54:12 07/02/19 25 07/01/2024 urina lysis panel , auto Unknown Analyte Negati ve Not Available [facility] [address], [place], [address], 07/01/2024 11:54:12 07/02/19 25 07/01/2024 urina lysis panel , auto Unknown Analyte Negati ve Not Available [facility] [address], [place], [address], 07/01/2024 11:54:12 07/02/19 25 07/01/2024 urina lysis panel , auto Unknown Analyte Negati ve Not Available [facility] [address], [place], [address], 07/01/2024 11:54:12 07/02/19 25 07/01/2024 urina lysis panel , auto Unknown Analyte Normal Not Available [facility] [address], [place], [address], 07/01/2024 11:54:12 07/02/19 25 07/01/2024 urina lysis panel , auto Unknown Analyte Normal Not Available [facility] [address], [place], [address], 07/01/2024 11:54:12 07/02/19 25 07/01/2024 urina lysis panel , auto Unknown Analyte Negati ve Not Available [facility] [address], [place], [address], 07/01/2024 11:54:12 07/02/19 25 07/01/2024 urina lysis panel , auto Unknown Analyte Negati ve Not Available [facility] [address], [place], [address], 07/01/2024 11:54:12 07/02/19 25 07/01/2024 urina lysis panel , auto Unknown Analyte Normal Not Available [facility] [address], [place], [address], 07/01/2024 11:54:12 07/02/19 25 07/01/2024 urina lysis panel , auto Unknown Analyte Normal Not Available [facility] [address], [place], [address], 07/01/2024 11:54:12 07/02/19 25 07/01/2024 urina lysis panel , auto Unknown Analyte Negati ve Not Available [facility] [address], [place], [address], 07/01/2024 11:54:12 07/02/19 25 07/01/2024 urina lysis panel , auto Unknown Analyte Negati ve Not Available [facility] [address] [facility] [address], [place], [address], 07/01/2024 11:54:12 07/02/19 25 07/01/2024 urina lysis panel , auto Unknown Analyte Negati ve Not Available [facility] [address] [facility] [address], [place], [address], 07/01/2024 11:54:12 07/02/19 25 07/01/2024 urina lysis panel , auto Unknown Analyte Negati ve Not Available [facility] [address] [facility] [address], [place], [address], 07/01/2024 11:54:12 Result Notes None recorded. Problems No Known Problems Procedures Surgical History Date Name Laterality Status Provider Name and Address Organization Details Recorded Time 07/02/19 25 Post Void Residual; Ultrasound completed [facility] 07/01/2024 10:25:18 cholecystectomy completed [facility] 07/01/2024 10:10:34 hysterectomy completed [facility] 07/01/2024 10:10:49 Bilateral mastectomy completed [facility] 07/01/2024 10:11:18 Imaging Results None recorded. Procedure Notes None recorded. Medical Equipment None Reported. Allergies Allergen ID Allergen Name Allergen Category Reaction Reaction Severity Criticality Documentation Date Start Date Code Code System Note Provider Name and Address Organization Details Recorded Time [id number] hydrocodo ne Not available chest pain Not available Not available 07/01/2024 5489 RxNorm [facility] 10:07:25 032318 lisinopri l medicatio n diarrhea Not available Not available 07/01/2024 71525 RxNorm Theresa Lai [facility] 10:07:43 320561 bisoprolo l Not available nausea Not available Not available 07/01/2024 19692 RxNorm Theresa Lai [facility] 10:08:03 Medications Name Sig Start Date Stop [...] Updated DateTime 07/01/2024 160.02 cm 28.9 kg/m2 49897.56 [facility] 10:06:50 Social History Question Answer Notes LastModified by Organizat ion Details LastModified Time Tobacco Smoking Status Never Smoker Not Available [employer] 07/01/2024 09:59:52 What Was The Date Of Your Most Recent Tobacco Screening? 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 Family History Relationship Description Onset Age of this Age Resolved Age Notes LastModified by Organization Details LastModified Time Unspecified Relation Family history of malignant neoplasm [email or web address] Not available 2024 09:59:52 Medical History Condition Response Seasonal Allergies Y Arthritis Y Acid Reflux (GERD) Y Cancer Y If you get up at night to urinate, how m any times? Y Do you get up at night to urinate? Y Urinary Tract Infection Y Chemotherapy Y Hypertension Y Gynecological History Statement/Question Response Female Hormone Problem N # of Pregnancies 3 Abnormal Periods N # of Births 2 Could you be now? N Current Control Method Hysterectom y Uterus/Ovaries Problem N Obstetrics History GPAL:G 0 P 0 0 0 0 Past Encounters Encounter ID Performer Location Encounter Start Date Encounter Closed Date Diagnosis/Indication Diagnosis SNOMED-CT Code Diagnosis ICD10 Code Diagnosis Note [id number] STANISLAV RIVERA JR, MD [facility] [address] [place] [address] 07/01/2024 09:59:51 07/01/2024 10:34:56 Vaginal wall prolapse 598775704 N81.10 Incontinence 00236347 N3 9.46 Health Concerns Section Related Observation LastModified by Organization Detai ls LastModified Time None Recorded Concern Status LastModified by Organization Details LastModified Time None Recorded Advance Directives Directive None Recorded Payers Insurance Date Sequence Insurance Name Policy Number Policy Diaz Covered Member ID Diaz Member ID Guarantor Name 07/01/2024 2 [place] Marium Musa [id number] Dm Musa 07/01/2024 1 [place] Marium Musa [id number] Dm Musa Notes Date Note Type [...] personal urination adjustments. STANISLAV RIVERA JR, MD [address] [place] [address], [id number], [facility] 07/04/2024 09:00:59 OBGyn Episode No OBEpisode recorded.
== END 2024-08-18 23:59 | disposition home or self-care (01) ==
LOC: RAD 08:45
PROVIDERS: PCP Internal Medicine; Visit Provider Internal Medicine
DX: J18.9 Pneumonia, unspecified organism (principal)
CPT/HCPCS: 71046